=== PATIENT | male | born 2000 | race Hispanic/Latino ===

== ENCOUNTER 2019-02-10 09:59 | Emergency (ER) | payer SELFPAY ==
[~2019-02-10] VITALS: Ht 172.7 cm; Wt 69.0 kg
[2019-02-10] MEDS ORDERED: NAPROSYN500 MG PO (11:34)
[2019-02-10 12:00] VITALS: BP 169/58
== END 2019-02-10 12:00 | disposition home or self-care (01) | DRG 392 ==
LOC: ED 09:59
DX: R10.33 Periumbilical pain (principal)